=== PATIENT | female | born 1965 | race Two or more races ===

== ENCOUNTER 2021-04-12 10:13 | Emergency (ER) | payer OTHER, SELFPAY ==
[2021-04-12 10:30] VITALS: BP 111/63; PULSE 82; RESP 20; TEMP 36.2; O2SAT 96; BMI 43.7
--- NOTE | 2021-04-12 10:51 | CA_ITS ---
APPROVED REPORT Right Lower Extremity Venous Study for DVT. 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: CT Indications Lower Extremity Pain: Right Lower Extremity Edema: Right pain,redness Vein Imaging CFV (R): compressive, spontaneous, phasic, augmentation SFJ (R): compressive, spontaneous, phasic, augmentation FEM (R): compressive, spontaneous, phasic, augmentation POP (R): compressive, spontaneous, phasic, augmentation DFV (R): compressive, spontaneous, phasic, augmentation PTV (R): compressive, spontaneous, phasic, augmentation GSV (R): compressive, spontaneous, phasic, augmentation SSV (R): compressive, spontaneous, phasic, augmentation Peroneals (R):compressive, spontaneous, phasic, augmentation GAS (R): compressive, spontaneous, phasic, augmentation Findings RLE negative for DVT/SVT. Vessels fully compressible. Conclusion RLE negative for DVT/SVT. Vessels fully compressible. Electronically signed by : Isabel Cabrera, 04/12/2021 17:21:40
--- NOTE | 2021-04-12 10:52 | HMH.EDUTC ---
[facility] [place] Clinical Impression: Cellulitis of leg, right Disposition: Home, Self-Care Condition on Discharge: Good Instructions: Cellulitis Additional Instructions: return or be seen in ed if no improvement follow up with pcp Prescriptions: cephALEXin [Cephalexin 500mg Tab] 500 mg PO BID 14 Days #28 tab Transmission Status: Pending to [id number] clindamycin HCL [Clindamycin HCl] 300 mg PO TID 7 Days #21 cap Transmission Status: Pending to [id number] Referrals: Provider,Referral, [Primary Care Provider] - Time of Disposition: 11:50 Medical Decision Making - Hema Inquiry Pt receiving controlled substance: No Vital Signs: 04/12/21 10:30 Temperature 97.2 F L Temperature Source Oral Pulse Rate [Right Brachial] 82 Respiratory Rate 20 Blood Pressure [Right Arm] 111/63 Blood Pressure Mean [Right Arm] 79 Blood Pressure Source [Right Arm] Automatic Cuff Blood Pressure Position [Right Arm] Sitting 02 Sat by Pulse Oximetry 96 Oxygen Delivery Method Room Air [facility] [place] - General Chief complaint: Urgent Treatment Center Stated complaint: Rt leg pain, redness, swelling Time Seen by Provider: 04/12/21 10:52 Mode of Arrival: Ambulatory Source of Information: Patient, Parent(s) Limitations: No Limitations Description of Symptoms (Recalled from Triage Doc. by RN): PATIENT C/O REDNESS AND SWELLING TO RIGHT LOWER LEG X 2 DAYS. ALSO C/O CHILLS AND HEADACHE. HAS A HISTORY OF THE SAME PROBLEM TO RIGHT LEG APPROX 2 YEARS AGO HEENT Symptoms (Recalled from RN notes): No Resp Symptoms (Recalled from RN notes): No Skin Symptoms (Recalled from RN notes): No MS Symptoms (Recalled from RN notes): Yes Functional Status (Recalled from RN notes): WNL - History of Present Illness Provider Complaint: 55 yr old female presents for c/o redness and swelling to rt lower ext for 2 days, chills,pain that moves up thigh and headache. states same issues about 2 yrs ago. states no other medical issues. - Related Data Previous Rx's Medication Instructions Recorded cephALEXin [Cephalexin 500mg Tab] 500 mg PO BID 14 Days #28 tab 04/12/21 clindamycin HCL [Clindamycin HCl] 300 mg PO TID 7 Days #21 cap 04/12/21 Allergies Allergy/AdvReac Type Severity Reaction Status Date / Time No Known Allergies Allergy Verified 06/14/18 16:32 - Worker's Comp Is this a Worker's Comp case?: No H History - Hepatitis A Screen Drug use history?: No High risk sexual behaviors?: No History of sexually transmitted infection?: No Currently employed?: No Childcare worker?: No Do you have indoor plumbing?: Yes Do you have electricity?: Yes Attestation statement:: This patient has been screened for Hepatitis A risk factors. I have reviewed the patient's past medical history: Yes Medical History: Denies:: Diabetes Mellitus Type 1, Diabetes Mellitus Type 2, Hypertension Other Surgeries: Yes: No Previous Surgery - Social History Alcohol Intake: never Occupational Status: other ROS Obtained: Yes Systems reviewed as appropriate & no additional complaints - Constitutional Constitutional: Reports system reviewed and no additional complaints, except as docu, Denies fever(s) - Eyes Eyes: Reports system reviewed and no additional complaints, except as docu, Denies change in vision - ENT Ears, Nose, Mouth, and Throat: Reports system reviewed and no additional complaints, except as docu, Denies nasal trauma - Cardiovascular Cardiovascular: Reports system reviewed and no additional complaints, except as docu, Denies chest pain at rest - Respiratory Respiratory: Reports system reviewed and no additional complaints, except as docu, Denies change in phlegm color - Gastrointestinal Gastrointestingal: Reports: system reviewed and no additional complaints, except as docu. Denies: change in bowel habits - Genitourinary Female Genitourinary: Reports system reviewed and no additional complaints, ex
[2021-04-12 11:43] VITALS: BP 111/63; PULSE 82; RESP 20; TEMP 36.2; O2SAT 96
== END 2021-04-12 11:58 | disposition home or self-care (01) ==
PROVIDERS: Emergency Provider Nurse Practitioner Family
DX: L03.115 Cellulitis of right lower limb (principal); M79.661 Pain in right lower leg
CPT/HCPCS: 93971; 99202; G0463